=== PATIENT | female | born 1955 | race Caucasian/White ===

== ENCOUNTER 2018-07-15 10:16 | Emergency (ER) | payer OTHER, SELFPAY ==
[2018-07-15 10:45] VITALS: BP 152/72; PULSE 82; RESP 14; TEMP 36.8; O2SAT 98
[2018-07-15] MEDS: ONDANSETRON 4 MG ODT PO (11:00)
--- NOTE | 2018-07-15 11:02 | PC.NURSE ---
Pt visualized upon entry to ED, no acute distress. High acuity / distress in ED. Pt told I would be back out shortly, given blanket for warmth, w/c. Pt states she was sent from walk in clinic 'where they wouldn't even see me because I was in to much pain'. Very unhappy about wait in ED (@ 30 min. Brought to hallway placement as ED full. Got order for [place] and zofran for nausea. Given zofran. Pt then stated she wanted to leave and was in to much pain to wait. Told I had norco in hand for her. She refused it. I told her I was trying my best to accommodate and she verbalized she was not upset at me but upset at 'being bounced around'. Encouraged to return at any point in time. Signed VDC. Told me she would return as needed.
--- NOTE | 2018-07-15 19:20 | ED.LOWEXIN ---
HPI - Extremity Injury (Lower) General Chief Complaint: Extremity Injury, Lower Stated Complaint: banged r knee, swollen Source: RN notes reviewed Related Data Allergies Allergy/AdvReac Type Severity Reaction Status Date / Time nitroglycerin AdvReac Intermediate Headache Verified 07/15/18 10:53 PFSH Social History Smoking Status: Current every day smoker Social History Smoking Status: Current every day smoker Exam Initial Vital Signs Initial Vital Signs: Vital Signs Temperature 98.2 F 07/15/18 10:45 Pulse Rate 82 07/15/18 10:45 Respiratory Rate 14 07/15/18 10:45 Blood Pressure 152/72 H 07/15/18 10:45 Pulse Oximetry 98 07/15/18 10:45 Course Orders Ordered: Discontinued Medications Hydrocodone Bitart/Acetaminophen ([place] 5/325) 2 tab PO NOW ONE Stop: 07/15/18 11:14 Last Admin: 07/15/18 11:00 Dose: Not Given Ondansetron HCl (Zofran Odt) 4 mg PO NOW ONE Stop: 07/15/18 11:14 Last Admin: 07/15/18 11:00 Dose: 4 mg Discharge Plan Departure Patient Disposition: Left Without Being Seen Clinical Impression: Patient left without being seen Discharge Date/Time: 07/15/18 11:04
== END 2018-07-15 11:04 | disposition left against medical advice (07) ==
PROVIDERS: Emergency Provider Emergency Medicine
DX: Z53.21 Procedure and treatment not carried out due to patient leaving prior to being seen by health care provider (principal)
CPT/HCPCS: 99281

== ENCOUNTER 2019-04-19 11:03 | Emergency (ER) | payer OTHER, SELFPAY ==
--- NOTE | 2019-04-19 11:19 | ED_ITS ---
HPI - Nausea/Vomiting/Diarrhea <CARLOS Rowland - Last Filed: 04/19/19 12:38> General Chief complaint: Nausea/Vomiting/Diarrhea Stated complaint: NSR Time Seen by Provider: 04/19/19 11:15 Source: patient, family and EMS Mode of arrival: EMS Limitations: no limitations History of Present Illness HPI Narrative: This is a 63-year-old female, smoker, who presents to ED with [facility] and spouse with chief complain of fever, body aches, left ear pain, headache, nausea and vomitingx2 and diarrhea for 5 times a day. 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 Patient reports recent exposure to flu from her granddaughter who was sick for last 7 days she received flu vaccination one week ago. According to medics report, patient having similar to syncopal episodes for about 30 sec to 1 min with decreased response and arousable per deep sternum rubs on the way to ER with stable vital signs without changes in heart rate, O2 sat, or blood pressure. Patient's spouse notice patient had slurred speech yesterday morning but had resolved during afternoon. Patient denies having history of migraine headaches but she states she is having left-sided migraine headache from ear pain. ETOH smell on her breath and she states she had taken wine this morning to relax herself which is not routine for herself and reports she has been crying too much. Patient states she like to leave ER as soon as she arrived stating her daughter couple of years ago in this ER. Patient denies taking antibiotic medication recently. Patient tried to self-treated herself with Tylenol this morning but had vomited soon after. Related Data Previous Rx's Medication Instructions Recorded amoxicillin-pot clavulanate 1 tab PO BID #14 tab 04/19/19 [Augmentin] ondansetron 4 mg PO BID-TID PRN #7 tab 04/19/19 Allergies Allergy/AdvReac Type Severity Reaction Status Date / Time nitroglycerin AdvReac Intermediate Headache Verified 04/19/19 11:26 Review of Systems <CARLOS Rowland - Last Filed: 04/19/19 12:38> Review of Systems Narrative: General: Reports fever. Denies chills, fatigue, malaise, sweats. HEENT: Reports left ear pain and headache. Denies sinus pain, sore throat, difficulty swallowing, dizziness. Respiratory: Denies dyspnea, cough, wheezing, hemoptysis, sputum. Cardiovascular: Denies chest pain, palpitations, orthopnea, edema. Gastrointestinal: See HPI : Denies dysuria, frequency, incontinence, hematuria, urinary retention. Musculoskeletal: Reports body aches. Denies weakness, joint pain. Skin: Denies rash, skin lesions, or other. Neurologic: See HPI Psychiatric: Reports anxious. 12-point review of systems is negative except for those stated above. Patient History <CARLOS Rowland - Last Filed: 04/19/19 12:38> Medical History Psoriasis (Acute) Surgical History H/O shoulder surgery (Acute) Previous back surgery (Acute) Social History Smoking Status: Current every day smoker Smoking Status: Current every day smoker alcohol intake frequency: 0-2 drinks per day Substance Use Type: does not use Exam <CARLOS Rowland - Last Filed: 04/19/19 12:38> Narrative Exam Narrative: GEN: Alert, oriented x 3, thinn appearing and in no acute di stress. Head: Normal cephalic, atraumatic. No scalp or temporal tenderness, palpable mass or rash. EYES: Pupils are equal, round, and reactive to light and accommodation. Extraocular muscles are intact bilaterally. There is no subconjunctival hemorrhage, exudate and sclera non-icteric. ENT: Bilateral auditory canal clear. Left TM injected and dull. Right TM clear with positive light reflex. Hearing grossly intact. Nose without bleeding, purulent discharge or deviation, nasal congestion with speech. Facial sinuses nontender to palpate. Mucous membrane moist, no mucosal lesion. Throat without erythema, tonsillar hypertrophy or exudate. Uvula in midline, airway patent. Neck: Trachea in midline. No JVD, non-tender without lymphadenopathy. No masses or thyroid megaly. Supple, non-tender and no meningeal signs. CARDIAC: Normal regular rate and rhythm without murmurs, gallops, or rubs. No chest wall tenderness. No peripheral edema, cyanosis or pallor. Capillary refill is less than 2 seconds. RESPIRATORY: Lungs are clear to auscultate bilaterally. No cough, wheezes, rales, or rhonchi. No stridor, respiratory distress, increase work of breathing, or accessary muscle used. ABD: Abdomen soft, nontender and non-distended. No guarding or rebound tenderness to palpate. Bowel sounds are normal in all 4 quadrants. There is no palpable masses or organomegaly. EXT: Full painless ROM of all extremities with no loss of sensation, strength, effusion or edema. SKIN: Warm, dry, normal color for patient. No erythema, lesions or rash over visible areas. BACK: Nontender without deformity or crepitance. No flank tenderness. NEUROLOGICAL: Alert and oriented to place, time and person. Sensation and motor function intact bilaterally. No facial droops, dysphasia. PSYCHIATRIC: Good judgement and reason, without hallucinations, abnormal affect or abnormal behaviors during the examination. Patient is not suicidal. Initial Vital Signs Initial Vital Signs: Vital Signs Temperature 97.7 F 04/19/19 11:26 Pulse Rate 80 04/19/19 11:26 Respiratory Rate 04/19/19 11:26 Blood Pressure 138/92 H 04/19/19 11:26 Pulse Oximetry 99 04/19/19 11:26 Neuro Cranial Nerves: CN's II-XI intact bilaterally, EOM intact bilaterally, tongue midline and symmetric palate elevation Cognition: normal cognition Speech: speech normal Gait: normal gait Motor: muscle tone normal throughout Sensory Exam: no sensory deficits noted <Nini Shah DO - Last Filed: 04/19/19 13:26> Initial Vital Signs Initial Vital Signs: Vital Signs Temperature 97.7 F 04/19/19 11:26 Pulse Rate 80 04/19/19 11:26 Respiratory Rate 04/19/19 11:26 Blood Pressure 138/92 H 04/19/19 11:26 Pulse Oximetry 99 04/19/19 11:26 Scores <CARLOS Rowland - Last Filed: 04/19/19 12:38> GCS [place] coma scale eye opening: Spontaneous [place] coma scale verbal response: Orientated [place] coma scale motor response: [place] commands [place] coma scale total score: 15 NIH Stroke Scale Level of Conciousness: Alert, keenly responsive Ask month/age: Answers both questions correctly. Open/close eyes, close hand: Performs both tasks correctly Best gaze horizontal: Normal Visual marks: No visual loss Facial palsy: Normal symetrical movement Left arm drift: No drift for full 10 sec Right arm drift: No drift for full 10 sec Left leg drift: No drift for full 10 sec Right leg drift: No drift for full 10 sec Limb ataxia: Absent Sensory on face/arms/legs: Normal, no sensory loss Best language: No aphasia, normal Dysarthria: Normal Extinction or inattention: No abnormality Total NIH Stroke scale score: 0 Course <CARLOS Rowland - Last Filed: 04/19/19 12:38> Orders Ordered: ED Orders 04/19/19 11:15 Complete Blood Count AUTO DIFF Stat Comprehensive Metabolic Panel Stat Ethanol (ETOH) Stat Influenza A & B (PCR) Stat Lipase Stat 04/19/19 11:38 EKG-12 Lead Stat Discontinued Medications Acetaminophen (Tylenol) 650 mg PO NOW ONE Stop: 04/19/19 11:19 Last Admin: 04/19/19 12:22 Dose: Not Given Documented by: APOLONIA Sodium Chloride (Normal Saline 0.9%) 1,000 mls @ 1,000 mls/hr IV BOLUS ONE Stop: 04/19/19 12:14 Last Infusion: 04/19/19 12:18 Dose: 0 mls/hr Documented by: Admin: 04/19/19 11:36 Dose: 1,000 mls/hr Documented by: APOLONIA Ketorolac Tromethamine (Toradol) 15 mg IV NOW ONE Stop: 04/19/19 11:19 Last Admin: 04/19/19 11:33 Dose: 15 mg Documented by: APOLONIA Ondansetron HCl (Zofran) 4 mg IV NOW ONE Stop: 04/19/19 11:16 Last Admin: 04/19/19 11:33 Dose: 4 mg Documented by: APOLONIA Vital Signs Vital signs: Vital Signs - 8 hr 04/19/19 11:26 Temperature 97.7 F Pulse Rate 80 Respiratory Rate 21 Blood Pressure 138/92 H Pulse Oximetry 99 <Nini Shah DO - Last Filed: 04/19/19 13:26> Orders Ordered: ED Orders 04/19/19 11:15 Complete Blood Count AUTO DIFF Stat Comprehensive Metabolic Panel Stat Ethanol (ETOH) Stat Influenza A & B (PCR) Stat Lipase Stat 04/19/19 11:38 EKG-12 Lead Stat Discontinued Medications Acetaminophen (Tylenol) 650 mg PO NOW ONE Stop: 04/19/19 11:19 Last Admin: 04/19/19 12:22 Dose: Not Given Documented by: APOLONIA Sodium Chloride (Normal Saline 0.9%) 1,000 mls @ 1,000 mls/hr IV BOLUS ONE Stop: 04/19/19 12:14 Last Infusion: 04/19/19 12:18 Dose: 0 mls/hr Documented by: Admin: 04/19/19 11:36 Dose: 1,000 mls/hr Documented by: APOLONIA Ketorolac Tromethamine (Toradol) 15 mg IV NOW ONE Stop: 04/19/19 11:19 Last Admin: 04/19/19 11:33 Dose: 15 mg Documented by: APOLONIA Ondansetron HCl (Zofran) 4 mg IV NOW ONE Stop: 04/19/19 11:16 Last Admin: 04/19/19 11:33 Dose: 4 mg Documented by: APOLONIA Vital Signs Vital signs: Vital Signs - 8 hr 04/19/19 11:26 Temperature 97.7 F Pulse Rate 80 Respiratory Rate 21 Blood Pressure 138/92 H Pulse Oximetry 99 MDM - Nausea/Vomiting/Diarrhea <Hai ToledoCARLOS Rapp - Last Filed: 04/19/19 12:38> Differential Diagnosis Differential diagnosis: Likely gastroenteritis and other (ETOH intake, I nfluenza, TIA, OM) Medical Records Attestation: I reviewed the patient's medical records. Lab Data Attestation: I reviewed the patient's lab results. Result diagrams: 04/19/19 11:15 04/19/19 11:15 Labs: Lab Results 04/19/19 04/19/19 04/19/19 Range/Units 11:15 11:15 11:15 WBC 10.3 (4.5-11.0) X10^3/uL RBC 3.89 L (4.0-5.2) X10^6/uL Hgb 13.7 (12.0-16.0) g/dL Hct 39.7 (36-46) % MCV 102.2 H (80-100) fL MCH 35.2 H (26-34) PG MCHC 34.5 (30-36) % RDW 13.1 (11.6-14.8) % Plt Count 220 (150-400) X10^3/uL Neut % (Auto) 73.4 (50-75) % Lymph % (Auto) 19.5 L (25-40) % [place] % (Auto) 6.0 (3-14) % Eos % (Auto) 0.6 L (2-4) % Baso % (Auto) 0.5 (0-2) % Neut # (Auto) 7500 H (9691-1767) /uL Lymph # (Auto) 2000 (2146-3694) /uL [place] # (Auto) 600 (0-900) /uL Eos # (Auto) 100 (0-450) /uL Baso # (Auto) 100 (0-100) /uL Sodium 138 (137-145) mmol/L Potassium 3.6 (3.4-5.1) mmol/L Chloride 99 (98-107) mmol/L Carbon Dioxide 22 (22-32) mmol/L BUN 4 L (7-17) mg/dL Creatinine 0.60 (0.52-1.04) mg/dL Estimated GFR > 60.0 (>60) mL/min BUN/Creatinine Ratio 6.7 (6-22) Glucose 89 (80-110) mg/dL Calcium 9.9 (8.4-10.2) mg/dL Total Bilirubin 0.5 (0.2-1.3) mg/dL AST 23 (14-36) IU/L ALT 19 (<35) IU/L Alkaline Phosphatase 104 (38-126) U/L Total Protein 7.3 (6.3-8.2) g/dL Albumin 4.6 (3.5-5.0) g/dL Globulin 2.7 (1.7-4.1) g/dL Albumin/Globulin Ratio 1.7 (1.0-2.8) Lipase 51 (23-300) U/L Ethyl Alcohol ( - 10) mg/dL Influenza A (RT-PCR) Flu a negative (NEGATIVE) Influenza B (RT-PCR) Flu b negative (NEGATIVE) 04/19/19 Range/Units 11:15 WBC (4.5-11.0) X10^3/uL RBC (4.0-5.2) X10^6/uL Hgb (12.0-16.0) g/dL Hct (36-46) % MCV (80-100) fL MCH (26-34) PG MCHC (30-36) % RDW (11.6-14.8) % Plt Count (150-400) X10^3/uL Neut % (Auto) (50-75) % Lymph % (Auto) (25-40) % [place] % (Auto) (3-14) % Eos % (Auto) (2-4) % Baso % (Auto) (0-2) % Neut # (Auto) (5463-6280) /uL Lymph # (Auto) (1036-1287) /uL [place] # (Auto) (0-900) /uL Eos # (Auto) (0-450) /uL Baso # (Auto) (0-100) /uL Sodium (137-145) mmol/L Potassium (3.4-5.1) mmol/L Chloride (98-107) mmol/L Carbon Dioxide (22-32) mmol/L BUN (7-17) mg/dL Creatinine (0.52-1.04) mg/dL Estimated GFR (>60) mL/min BUN/Creatinine Ratio (6-22) Glucose (80-110) mg/dL Calcium (8.4-10.2) mg/dL Total Bilirubin (0.2-1.3) mg/dL AST (14-36) IU/L ALT (<35) IU/L Alkaline Phosphatase (38-126) U/L Total Protein (6.3-8.2) g/dL Albumin (3.5-5.0) g/dL Globulin (1.7-4.1) g/dL Albumin/Globulin Ratio (1.0-2.8) Lipase (23-300) U/L Ethyl Alcohol 157 H ( - 10) mg/dL Influenza A (RT-PCR) (NEGATIVE) Influenza B (RT-PCR) (NEGATIVE) ECG Data Attestation: I personally reviewed and interpreted this ECG as follows: Prior ECG tracings: not available for review Interpretation: SR rate at 75. Normal [place]. No ST elevation or depression MDM Narrative Medical decision making narrative: This is a 63-year-old female who presents to ED with spouse via would be EMS with chief complaint left ear pain, fever, productive cough, nausea/vomiting/diarrhea, headache and recent exposure to a granddaughter had flu. Spouse concerned and called EMS due to patient had slurred speech yesterday morning which resolved during afternoon. EMS reported patient had decreased responsiveness during right to ED and had to be stimulated by sternal rub with stable vital signs. Patient does report had a glass of wine this morning to relax herself. Patient is very anxious to leave ED as soon as she arrived to ED stating I feel fine, I don't want to be here since her daughter 2 years ago in emergency room. Patient states drinks a couple of alcohol drinks a day. Patient has slurred speech likely related to alcohol intake and today's ETOH level is 157. When patient informed of this patient, patient appears to be very surprised. NIHSS score 0 and patient is alert and oriented with negative FAST exam. Patient was medicated with IV Zofran and normal saline 1 liter. Flu swab was negative. Lab tests were unremarkable. Patient was afebrile with stable vital signs. Patient refused to provide urine sample. Physical exam is consistent with left otitis media and Rx provided for Augmentin b.i.d. dose for 7 day course. Zofran has been Rx for home use to hydrate herself with a frequent small sips of clear liquids. Patient refused to stay longer for additional evaluation and treatment. Return precautions were discussed with the patient and patient and spouse verbalized understanding and agrees with treatment plan. <Nini Shah, DO - Last Filed: 04/19/19 13:26> Lab Data Labs: Lab Results 04/19/19 04/19/19 04/19/19 Range/Units 11:15 11:15 11:15 WBC 10.3 (4.5-11.0) X10^3/uL RBC 3.89 L (4.0-5.2) X10^6/uL Hgb 13.7 (12.0-16.0) g/dL Hct 39.7 (36-46) % MCV 102.2 H (80-100) fL MCH 35.2 H (26-34) PG MCHC 34.5 (30-36) % RDW 13.1 (11.6-14.8) % Plt Count 220 (150-400) X10^3/uL Neut % (Auto) 73.4 (50-75) % Lymph % (Auto) 19.5 L (25-40) % [place] % (Auto) 6.0 (3-14) % Eos % (Auto) 0.6 L (2-4) % Baso % (Auto) 0.5 (0-2) % Neut # (Auto) 7500 H (4127-4574) /uL Lymph # (Auto) 2000 (1734-7486) /uL [place] # (Auto) 600 (0-900) /uL Eos # (Auto) 100 (0-450) /uL Baso # (Auto) 100 (0-100) /uL Sodium 138 (137-145) mmol/L Potassium 3.6 (3.4-5.1) mmol/L Chloride 99 (98-107) mmol/L Carbon Dioxide 22 (22-32) mmol/L BUN 4 L (7-17) mg/dL Creatinine 0.60 (0.52-1.04) mg/dL Estimated GFR > 60.0 (>60) mL/min BUN/Creatinine Ratio 6.7 (6-22) Glucose 89 (80-110) mg/dL Calcium 9.9 (8.4-10.2) mg/dL Total Bilirubin 0.5 (0.2-1.3) mg/dL AST 23 (14-36) IU/L ALT 19 (<35) IU/L Alkaline Phosphatase 104 (38-126) U/L Total Protein 7.3 (6.3-8.2) g/dL Albumin 4.6 (3.5-5.0) g/dL Globulin 2.7 (1.7-4.1) g/dL Albumin/Globulin Ratio 1.7 (1.0-2.8) Lipase 51 (23-300) U/L Ethyl Alcohol ( - 10) mg/dL Influenza A (RT-PCR) Flu a negative (NEGATIVE) Influenza B (RT-PCR) Flu b negative (NEGATIVE) 04/19/19 Range/Units 11:15 WBC (4.5-11.0) X10^3/uL RBC (4.0-5.2) X10^6/uL Hgb (12.0-16.0) g/dL Hct (36-46) % MCV (80-100) fL MCH (26-34) PG MCHC (30-36) % RDW (11.6-14.8) % Plt Count (150-400) X10^3/uL Neut % (Auto) (50-75) % Lymph % (Auto) (25-40) % [place] % (Auto) (3-14) % Eos % (Auto) (2-4) % Baso % (Auto) (0-2) % Neut # (Auto) (7604-3610) /uL Lymph # (Auto) (3017-9597) /uL [place] # (Auto) (0-900) /uL Eos # (Auto) (0-450) /uL Baso # (Auto) (0-100) /uL Sodium (137-145) mmol/L Potassium (3.4-5.1) mmol/L Chloride (98-107) mmol/L Carbon Dioxide (22-32) mmol/L BUN (7-17) mg/dL Creatinine (0.52-1.04) mg/dL Estimated GFR (>60) mL/min BUN/Creatinine Ratio (6-22) Glucose (80-110) mg/dL Calcium (8.4-10.2) mg/dL Total Bilirubin (0.2-1.3) mg/dL AST (14-36) IU/L ALT (<35) IU/L Alkaline Phosphatase (38-126) U/L Total Protein (6.3-8.2) g/dL Albumin (3.5-5.0) g/dL Globulin (1.7-4.1) g/dL Albumin/Globulin Ratio (1.0-2.8) Lipase (23-300) U/L Ethyl Alcohol 157 H ( - 10) mg/dL Influenza A (RT-PCR) (NEGATIVE) Influenza B (RT-PCR) (NEGATIVE) Discharge Plan Departure Patient Disposition: Home Clinical Impression: Otitis media Qualifiers: Otitis media type: unspecified Chronicity: acute Qualified Code(s): H66.90 - Otitis media, unspecified, unspecified ear Nausea & vomiting Qualifiers: Vomiting type: unspecified Vomiting Intractability: non-intractable Qualified Code(s): R11.2 - Nausea with vomiting, unspecified Discharge Date/Time: 04/19/19 12:24 Instructions: DI for Vomiting -- Adult, DI for Middle Ear Infection-Adult Activity Restrictions/Additional Instructions: You have been diagnosed with [middle your infection on left ear, nausea and vomiting, viral illness. EKG looks normal. Flu swab test was negative and blood tests were unremarkable]. What to do: *Take your medications as directed. Please start Augmentin for otitis media twice a day for next 7 days. You can use Zofran as needed for nausea and vomiting. Please hydrate herself with small sips clear liquids after the Zofran. *Follow up with your primary care provider in 2-3 days, call for an appointment. Let them know you were seen in the ED and that we asked you to be seen in follow up. *Return to ED if you have any new, worsening, or concerning symptoms, such as [fever, chest pain, breathing difficulty, unable to tolerate fluids, fainting episodes, weakness to limbs, slurred speech, vision change, facial droops, balance problem, blood in your vomit or stools or any acute concerns]. Prescriptions: New amoxicillin-pot clavulanate [Augmentin] 875-125 mg tablet 1 tab PO BID Qty: 14 RF: 0 ondansetron 4 mg tablet,disintegrating 4 mg PO BID-TID PRN (Reason: nausea and vomiting) Qty: 7 RF: 0
[2019-04-19 11:25] LABS: Add Manual Diff / Slide Review NO; Basophils Absolute Auto 100 /uL (0-100); Basophils Percent Auto 0.5 % (0-2); Eosinophils Absolute Auto 100 /uL (0-450); Eosinophils Percent Auto 0.6 % (2-4); Hematocrit 39.7 % (36-46); Hemoglobin 13.7 g/dL (12.0-16.0); Lymphocytes Absolute Auto 2000 /uL (1100-4500); Lymphocytes Percent Auto 19.5 % (25-40); Mean Corpuscular HGB Conc 34.5 % (30-36); Mean Corpuscular Hemoglobin 35.2 PG (26-34); Mean Corpuscular Volume 102.2 fL (80-100); Monocytes Absolute Auto 600 /uL (0-900); Neutrophils Absolute Auto 7500 /uL (1500-7000); Neutrophils Percent Auto 73.4 % (50-75); Platelet Count 220 X10^3/uL (150-400); Red Blood Cell Count 3.89 X10^6/uL (4.0-5.2); Red Cell Distribution Width 13.1 % (11.6-14.8); White Blood Cell Count 10.3 X10^3/uL (4.5-11.0)
[2019-04-19 11:26] VITALS: BP 138/92; PULSE 80; RESP 21; TEMP 36.5; O2SAT 99; BMI 20.1
[2019-04-19] MEDS: ONDANSETRON 4 MG/2 ML INJ IV (11:33)
[2019-04-19] MEDS: KETOROLAC 60 MG/2 ML VIAL 15 MG IV (11:33)
[2019-04-19 11:34] LABS: Alanine Aminotransferase 19 IU/L (<35); Albumin 4.6 g/dL (3.5-5.0); Albumin Globulin Ratio 1.7 (1.0-2.8); Alkaline Phosphatase 104 U/L (38-126); Aspartate Aminotransferase 23 IU/L (14-36); BUN Creatinine Ratio 6.7 (6-22); Bilirubin Total 0.5 mg/dL (0.2-1.3); Blood Urea Nitrogen 4 mg/dL (7-17); Calcium 9.9 mg/dL (8.4-10.2); Carbon Dioxide 22 mmol/L (22-32); Chloride 99 mmol/L (98-107); Estimated Glomerular Filt Rate > 60.0 mL/min (>60); Globulin 2.7 g/dL (1.7-4.1); Glucose 89 mg/dL (80-110); HEMOLYSIS < 15 (0-50); Lipase 51 U/L (23-300); Potassium 3.6 mmol/L (3.4-5.1); Sodium 138 mmol/L (137-145); Total Protein 7.3 g/dL (6.3-8.2)
[2019-04-19] MEDS: SODIUM CHLORIDE 0.9% 1,000 ML 1000 ML IV (11:36)
[2019-04-19 11:38] LABS: Ethanol (ETOH) 157 mg/dL
--- NOTE | 2019-04-19 11:46 | PC.NURSE ---
Pt was given toradol IV, pt states I have better F meds at home. Pt has removed all monitoring devices and has refused to get a urine sample. Pt got up without assist, asked to stay until we had a wc for transport to restroom. States, I can take better care of myself at home.
--- NOTE | 2019-04-19 11:47 | PC.NURSE ---
patient came out of bathroom, walked by the wheelchair taking off her cardiac leads, states i don't need these, theres nothing wrong with my heart
[2019-04-19 12:03] LABS: Influenza A - CEPHEID Flu A NEGATIVE (NEGATIVE); Influenza B - CEPHEID Flu B NEGATIVE (NEGATIVE)
--- NOTE | 2019-04-19 12:05 | PC.NURSE ---
Pt taking off IV tape, leaving IV in. States, It so easy to just take this out I asked pt if we could leave it covered while she finishes her fluids. I applied tape.
--- NOTE | 2019-04-19 12:16 | PC.NURSE ---
Pt pulled IV out
== END 2019-04-19 12:24 | disposition home or self-care (01) ==
PROVIDERS: Emergency Provider Nurse Practitioner Family
DX: H66.92 Otitis media, unspecified, left ear (principal); R11.2 Nausea with vomiting, unspecified; R19.7 Diarrhea, unspecified; F10.129 Alcohol abuse with intoxication, unspecified; Y90.6 Blood alcohol level of 120-199 mg/100 ml; F17.200 Nicotine dependence, unspecified, uncomplicated
CPT/HCPCS: 36415; 80053; 80320; 83690; 85025; 87502; 93005; 96361; 96374; 96375; 99283; 99284; J1885; J2405

== ENCOUNTER 2020-02-21 07:05 | Emergency (ER) | payer OTHER, SELFPAY ==
[2020-02-21] VITALS (14 sets, daily range): BP systolic 153–192; BP diastolic 70–92; PULSE 52–63; RESP 18–45; TEMP 36.7; O2SAT 97–100; BMI 20.5
--- NOTE | 2020-02-21 07:43 | ED.ABDPAIN ---
HPI - Abdominal Pain General Chief Complaint: Abdominal Pain Stated Complaint: liver /galblader/ vomiting Time Seen by Provider: 02/21/20 07:12 Source: patient Mode of arrival: Ambulatory History of Present Illness HPI narrative: Pt c/o ruq pain with n/v. Patient states onset 1 week ago with right upper quadrant discomfort. Had itchy skin for a while and resolved. Never developed yellow eyes or yellow skin. Patient has significant family history of liver disease/cancer. No surgeries on her abdomen the past. No urinary complaints. Worse with eating. Sometimes with movement. No back pain chest pain. No cough cold congestion fever chills. MD complaint: abdominal pain Related Data Previous Rx's Medication Instructions Recorded amoxicillin-pot clavulanate 1 tab PO BID #14 tab 04/19/19 [Augmentin] ondansetron 4 mg PO BID-TID PRN #7 tab 04/19/19 ondansetron 4 mg PO Q8H PRN #10 tab 02/21/20 Allergies Allergy/AdvReac Type Severity Reaction Status Date / Time nitroglycerin AdvReac Intermediate Headache Verified 04/19/19 11:26 Patient History Medical History (Updated 02/21/20 @ 11:30 by Abby Mcdermott RN) Psoriasis (Acute) Surgical History H/O shoulder surgery (Acute) Previous back surgery (Acute) Social History Smoking Status: Current every day smoker Smoking Status: Current every day smoker alcohol intake frequency: a few times a week Substance Use Type: does not use Exam Initial Vital Signs Initial Vital Signs: Vital Signs Temperature 98.1 F 02/21/20 07:18 Pulse Rate 55 L 02/21/20 07:18 Respiratory Rate 18 02/21/20 07:18 Blood Pressure 157/82 H 02/21/20 07:18 Pulse Oximetry 100 02/21/20 07:18 Course Course Course Narrative: Reviewed results with patient. She does not want any Bentyl. She agrees with follow-up. She has appointment with a new doctor Keya Pahaade coker Giovanni March 12. She does have a family physician that she will call in [place] to get referral for HIDA scan as well as GI Orders Ordered: Discontinued Medications Sodium Chloride (Normal Saline 0.9%) 500 mls @ 1,000 mls/hr IV BOLUS ONE Stop: 02/21/20 08:51 Last Infusion: 02/21/20 09:47 Dose: 0 mls/hr Documented by: Admin: 02/21/20 08:38 Dose: 1,000 mls/hr Documented by: LORI Reevaluation(s) Reevaluation #1: No new complaints at this time. Patient is not on any medications. Reviewed results with patient needing to continue workup for liver disease and possible biliary dyskinesia. Will need GI referral. Spoke with patient and that she will need continued workup. Given family history of liver disease Time: 11:28 Vital Signs Vital signs: Vital Signs - 8 hr 02/21/20 07:18 02/21/20 07:45 02/21/20 08:00 Temperature 98.1 F Pulse Rate 55 L 54 L Respiratory Rate 18 37 H Blood Pressure 157/82 H 165/83 H Pulse Oximetry 100 100 100 02/21/20 08:01 02/21/20 08:30 02/21/20 08:31 Temperature Pulse Rate 55 L 57 L 55 L Respiratory Rate 34 H 45 H 26 H Blood Pressure 166/81 H 184/79 H Pulse Oximetry 99 100 100 02/21/20 09:00 02/21/20 09:19 02/21/20 09:30 Temperature Pulse Rate 55 L 57 L 55 L Respiratory Rate 40 H 27 H 22 Blood Pressure 160/92 H 167/79 H 153/70 H Pulse Oximetry 100 100 99 02/21/20 10:00 02/21/20 10:01 02/21/20 10:30 Temperature Pulse Rate 53 L 55 L 54 L Respiratory Rate 20 18 22 Blood Pressure 165/77 H 175/84 H Pulse Oximetry 97 99 100 02/21/20 11:00 Temperature Pulse Rate 52 L Respiratory Rate 24 Blood Pressure Pulse Oximetry 99 MDM - Abdominal Pain Lab Data Attestation: I reviewed the patient's lab results. Result diagrams: 02/21/20 07:45 02/21/20 07:45 Labs: Lab Results 02/21/20 02/21/20 02/21/20 Range/Units 07:45 07:45 07:45 WBC 8.7 (4.5-11.0) X10^3/uL RBC 4.32 (4.0-5.2) X10^6/uL Hgb 15.0 (12.0-16.0) g/dL Hct 44.2 (36-46) % MCV 102.3 H (80-100) fL MCH 34.8 H (26-34) PG MCHC 34.0 (30-36) % RDW 12.8 (11.6-14.8) % Plt Count 254 (150-400) X10^3/uL Neut % (Auto) 76.2 H (50-75) % Lymph % (Auto) 17.8 L (25-40) % [place] % (Auto) 5.4 (3-14) % Eos % (Auto) 0.1 L (2-4) % Baso % (Auto) 0.5 (0-2) % Neut # (Auto) 6600 (4447-9064) /uL Lymph # (Auto) 1500 (6468-0620) /uL [place] # (Auto) 500 (0-900) /uL Eos # (Auto) 0 (0-450) /uL Baso # (Auto) 0 (0-100) /uL PT 11.4 (10.1-12.7) SECONDS INR 1.0 (0.9-1.3) APTT 33 (26.4-36.2) SECONDS Sodium 129 L (137-145) mmol/L Potassium 3.6 (3.4-5.1) mmol/L Chloride 97 L (98-107) mmol/L Carbon Dioxide 26 (22-32) mmol/L BUN 10 (7-17) mg/dL Creatinine 0.68 (0.52-1.04) mg/dL Estimated GFR > 60.0 (>60) mL/min BUN/Creatinine Ratio 14.7 (6-22) Glucose 113 H (80-110) mg/dL Calcium 9.4 (8.4-10.2) mg/dL Total Bilirubin 0.9 (0.2-1.3) mg/dL AST 21 (14-36) IU/L ALT 14 (<35) IU/L Alkaline Phosphatase 100 (38-126) U/L Total Creatine Kinase (30-135) U/L CK-MB (CK-2) CK-MB (CK-2) Rel Index Troponin I (0.01-0.034) ng/mL Total Protein 7.2 (6.3-8.2) g/dL Albumin 4.4 (3.5-5.0) g/dL Globulin 2.8 (1.7-4.1) g/dL Albumin/Globulin Ratio 1.6 (1.0-2.8) Lipase 85 (23-300) U/L 02/21/20 Range/Units 07:45 WBC (4.5-11.0) X10^3/uL RBC (4.0-5.2) X10^6/uL Hgb (12.0-16.0) g/dL Hct (36-46) % MCV (80-100) fL MCH (26-34) PG MCHC (30-36) % RDW (11.6-14.8) % Plt Count (150-400) X10^3/uL Neut % (Auto) (50-75) % Lymph % (Auto) (25-40) % [place] % (Auto) (3-14) % Eos % (Auto) (2-4) % Baso % (Auto) (0-2) % Neut # (Auto) (0643-0521) /uL Lymph # (Auto) (6483-0578) /uL [place] # (Auto) (0-900) /uL Eos # (Auto) (0-450) /uL Baso # (Auto) (0-100) /uL PT (10.1-12.7) SECONDS INR (0.9-1.3) APTT (26.4-36.2) SECONDS Sodium (137-145) mmol/L Potassium (3.4-5.1) mmol/L Chloride (98-107) mmol/L Carbon Dioxide (22-32) mmol/L BUN (7-17) mg/dL Creatinine (0.52-1.04) mg/dL Estimated GFR (>60) mL/min BUN/Creatinine Ratio (6-22) Glucose (80-110) mg/dL Calcium (8.4-10.2) mg/dL Total Bilirubin (0.2-1.3) mg/dL AST (14-36) IU/L ALT (<35) IU/L Alkaline Phosphatase (38-126) U/L Total Creatine Kinase 56 (30-135) U/L CK-MB (CK-2) TNP CK-MB (CK-2) Rel Index TNP Troponin I < 0.012 (0.01-0.034) ng/mL Total Protein (6.3-8.2) g/dL Albumin (3.5-5.0) g/dL Globulin (1.7-4.1) g/dL Albumin/Globulin Ratio (1.0-2.8) Lipase (23-300) U/L Imaging Data Abdominal ultrasound: Radiologist's Impression: [address] [address] Ultrasound Report Signed Patient: Yesica Franco GMR#: [id number] : 8Acct:[id number] Age/Sex: 64 / FDate of Service: 02/21/20 Loc: ED Accession Number: [id number] Procedure: US abdomen limited Ordering Provider: Austyn Elizalde MD PROCEDURE: US ABDOMEN LIMITED INDICATIONS: UPPER ABDOMINAL PAIN TECHNIQUE: Real-time scanning was performed of the abdominal and retroperitoneal organs, with image documentation. COMPARISON: [facility], CT, CT ABDOMEN PELVIS W CON, 02/21/2020, 9:08. FINDINGS: Liver: Liver is normal in size and diffusely increased in echogenicity. Gallbladder: The gallbladder is mildly contracted without gallstones or gallbladder wall thickening. There is no pericholecystic fluid. Biliary ducts: Intrahepatic bile ducts are non-dilated. Extrahepatic bile duct caliber measures 3 mm. Normal is 6-7 mm or less in diameter, or 10 mm or less post-cholecystectomy. Pancreas: Visualized portions of the pancreas are sonographically normal. Iliacs: Proximal common iliac arteries are normal in caliber at less than 2.5 cm. IVC: Intrahepatic inferior vena cava is patent. Miscellaneous: No free right upper quadrant fluid. IMPRESSION: 1. Mildly contracted gallbladder without signs of acute cholecystitis. 2. Increased hepatic echogenicity is seen, most commonly secondary to diffuse hepatic steatosis but other sources of hepatocellular disease cannot be excluded. Recommend clinical correlation. Dictated by: Jose Carlos Davidson M.D. on 02/21/2020 at 10:38 Approved by: Jose Carlos Davidson M.D. on 02/21/2020 at 10:41 CT scan - abdomen/pelvis: Radiologist's Impression: [address] [address] [address] Scan Report Signed Patient: Yesica Franco GMR#: [id number] : 8Acct:[id number] Age/Sex: 64 / FDate of Service: 02/21/20 Loc: ED Accession Number: [id number] Procedure: CT abdomen pelvis w con Ordering Provider: Austyn Elizalde MD PROCEDURE: CT ABDOMEN PELVIS W CON INDICATIONS: IV contrast only/upper abdominal pain TECHNIQUE: After the administration of intravenous contrast, 5 mm thick sections acquired from the diaphragm to the symphysis. 5 mm coronal and sagittal reformats were acquired. For radiation dose reduction, the following was used: automated exposure control, adjustment of mA and/or kV according to patient size. COMPARISON: None. FINDINGS: Image quality: Study mildly degraded by moderate beam hardening and streak artifact from spinal fusion hardware at L5-S1. ABDOMEN: Lung bases: Minimal bibasilar atelectasis. Heart size is normal. Partially imaged oval hyperdensity in the inferior margin of the left upper chest likely representing breast tissue or breast implant. Recommend correlation with clinical history. Solid organs: Liver is normal in size and enhancement. Hepatic steatosis. Gallbladder is decompressed; however, there appears to be relative increased wall enhancement. No evidence for wall thickening or pericholecystic inflammatory changes. . Biliary system is non dilated. Pancreas enhances normally. Spleen is normal in size and enhancement. No adrenal nodules. Kidneys demonstrate normal size and enhancement, without hydronephrosis. Peritoneum and bowel: Moderate scattered colonic diverticulosis without evidence for acute inflammatory changes. Bowel loops demonstrate normal wall thickness and caliber. No free fluid or air. Nodes and vessels: No retroperitoneal or mesenteric adenopathy by size criteria. Aorta and inferior vena cava are normal in size. Scattered atherosclerotic calcifications of the abdominal aorta and iliac vessels without aneurysmal dilatation. Miscellaneous: No ventral hernias. PELVIS: Genitourinary: Bladder wall thickness is normal. Miscellaneous: No inguinal hernias or adenopathy. Bones: No suspicious bony lesions. No acute vertebral body compression fractures. Multilevel spondylitic changes of the imaged spine status post fusion at L5-S1 and discectomies at L4-5 and L5-S1. IMPRESSION: 1. Decompressed gallbladder with suggestion of increased gallbladder wall enhancement. Otherwise, no CT evidence for gallbladder wall thickening, pericholecystic fluid, or pericholecystic inflammatory changes. Consider right upper quadrant ultrasound for further evaluation. 2. Diffuse hepatic steatosis. 3. Colonic diverticulosis without acute diverticulitis. 4. Other chronic findings as above. Dictated by: Rocco Gonzalez M.D. on 02/21/2020 at 8:30 Approved by: Rocco Gonzalez M.D. on 02/21/2020 at 8:40 ECG Data Attestation: I personally reviewed and interpreted this ECG as follows: Interpretation: Sinus bradycardia, rate 52, no ST elevation or depression MDM Narrative Medical decision making narrative: Appropriate for discharge home and follow-up with family physician for referral to HIDA scan as well as Gastroenterology. Laboratory studies normal at this time. No acute findings on imaging. Patient and understand with family history of liver cancer disease needs continued workup. Outpatient basis blood pressure noted. Patient has not taken her blood pressure medication. Slightly anxious as well. No chest pain headache. No neuro complaints Discharge Plan Departure Patient Disposition: Home Clinical Impression: Hypertension Abdominal pain Qualifiers: Abdominal location: right upper quadrant Qualified Code(s): R10.11 - Right upper quadrant pain Discharge Date/Time: 02/21/20 11:30 Instructions: DI for Abdominal Pain-Adult Activity Restrictions/Additional Instructions: Do not drink alcohol. See your new family physician with [facility] in [place] March 12 as scheduled. 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 And is scheduled for HIDA scan of the gallbladder. Do not drink alcohol. Return if worse or if any questions or concerns. Prescription for Zofran has been sent to [facility] in [place] Prescriptions: New ondansetron 4 mg tablet,disintegrating 4 mg PO Q8H PRN (Reason: nausea and vomiting) Qty: 10 RF: 0 No Action amoxicillin-pot clavulanate [Augmentin] 875-125 mg tablet 1 tab PO BID Qty: 14 RF: 0 ondansetron 4 mg tablet,disintegrating 4 mg PO BID-TID PRN (Reason: nausea and vomiting) Qty: 7 RF: 0
[2020-02-21 07:55] LABS: Add Manual Diff / Slide Review NO; Basophils Absolute Auto 0 /uL (0-100); Basophils Percent Auto 0.5 % (0-2); Eosinophils Absolute Auto 0 /uL (0-450); Eosinophils Percent Auto 0.1 % (2-4); Hematocrit 44.2 % (36-46); Lymphocytes Absolute Auto 1500 /uL (1100-4500); Lymphocytes Percent Auto 17.8 % (25-40); Mean Corpuscular Hemoglobin 34.8 PG (26-34); Mean Corpuscular Volume 102.3 fL (80-100); Monocytes Absolute Auto 500 /uL (0-900); Monocytes Percent Auto 5.4 % (3-14); Neutrophils Absolute Auto 6600 /uL (1500-7000); Neutrophils Percent Auto 76.2 % (50-75); Platelet Count 254 X10^3/uL (150-400); Red Blood Cell Count 4.32 X10^6/uL (4.0-5.2); Red Cell Distribution Width 12.8 % (11.6-14.8); White Blood Cell Count 8.7 X10^3/uL (4.5-11.0)
[2020-02-21 08:00] LABS: Prothrombin Time 11.4 SECONDS (10.1-12.7)
[2020-02-21 08:03] LABS: PTT Partial Thromboplastin Tim 33 SECONDS (26.4-36.2)
[2020-02-21 08:05] LABS: Alanine Aminotransferase 14 IU/L (<35); Albumin 4.4 g/dL (3.5-5.0); Albumin Globulin Ratio 1.6 (1.0-2.8); Alkaline Phosphatase 100 U/L (38-126); Aspartate Aminotransferase 21 IU/L (14-36); BUN Creatinine Ratio 14.7 (6-22); Bilirubin Total 0.9 mg/dL (0.2-1.3); Blood Urea Nitrogen 10 mg/dL (7-17); Calcium 9.4 mg/dL (8.4-10.2); Carbon Dioxide 26 mmol/L (22-32); Chloride 97 mmol/L (98-107); Estimated Glomerular Filt Rate > 60.0 mL/min (>60); Globulin 2.8 g/dL (1.7-4.1); Glucose 113 mg/dL (80-110); HEMOLYSIS < 15 (0-50); Lipase 85 U/L (23-300); Potassium 3.6 mmol/L (3.4-5.1); Sodium 129 mmol/L (137-145); Total Protein 7.2 g/dL (6.3-8.2)
[2020-02-21 08:06] LABS: Creatine Kinase 56 U/L (30-135)
[2020-02-21 08:17] LABS: Troponin I < 0.012 ng/mL (0.01-0.034)
--- NOTE | 2020-02-21 08:22 | DI.CT.S_ITS ---
PROCEDURE: CT ABDOMEN PELVIS W CON INDICATIONS: IV contrast only/upper abdominal pain TECHNIQUE: After the administration of intravenous contrast, 5 mm thick sections acquired from the diaphragm to the symphysis. 5 mm coronal and sagittal reformats were acquired. For radiation dose reduction, the following was used: automated exposure control, adjustment of mA and/or kV according to patient size. COMPARISON: None. FINDINGS: Image quality: Study mildly degraded by moderate beam hardening and streak artifact from spinal fusion hardware at L5-S1. ABDOMEN: Lung bases: Minimal bibasilar atelectasis. Heart size is normal. Partially imaged oval hyperdensity in the inferior margin of the left upper chest likely representing breast tissue or breast implant. Recommend correlation with clinical history. Solid organs: Liver is normal in size and enhancement. Hepatic steatosis. Gallbladder is decompressed; however, there appears to be relative increased wall enhancement. No evidence for wall thickening or pericholecystic inflammatory changes. . Biliary system is non dilated. Pancreas enhances normally. Spleen is normal in size and enhancement. No adrenal nodules. Kidneys demonstrate normal size and enhancement, without hydronephrosis. Peritoneum and bowel: Moderate scattered colonic diverticulosis without evidence for acute inflammatory changes. Bowel loops demonstrate normal wall thickness and caliber. No free fluid or air. Nodes and vessels: No retroperitoneal or mesenteric adenopathy by size criteria. Aorta and inferior vena cava are normal in size. Scattered atherosclerotic calcifications of the abdominal aorta and iliac vessels without aneurysmal dilatation. Miscellaneous: No ventral hernias. PELVIS: Genitourinary: Bladder wall thickness is normal. Miscellaneous: No inguinal hernias or adenopathy. Bones: No suspicious bony lesions. No acute vertebral body compression fractures. Multilevel spondylitic changes of the imaged spine status post fusion at L5-S1 and discectomies at L4-5 and L5-S1. IMPRESSION: 1. Decompressed gallbladder with suggestion of increased gallbladder wall enhancement. Otherwise, no CT evidence for gallbladder wall thickening, pericholecystic fluid, or pericholecystic inflammatory changes. Consider right upper quadrant ultrasound for further evaluation. 2. Diffuse hepatic steatosis. 3. Colonic diverticulosis without acute diverticulitis. 4. Other chronic findings as above. Dictated by: Rocco Gonzalez M.D. on 02/21/2020 at 8:30 Approved by: Rocco Gonzalez M.D. on 02/21/2020 at 8:40
[2020-02-21] MEDS: SODIUM CHLORIDE 0.9% 500 ML 1000 ML IV (08:38)
--- NOTE | 2020-02-21 09:55 | DI.US.S_ITS ---
PROCEDURE: US ABDOMEN LIMITED INDICATIONS: UPPER ABDOMINAL PAIN TECHNIQUE: Real-time scanning was performed of the abdominal and retroperitoneal organs, with image documentation. COMPARISON: [facility], CT, CT ABDOMEN PELVIS W CON, 02/21/2020, 9:08. FINDINGS: Liver: Liver is normal in size and diffusely increased in echogenicity. Gallbladder: The gallbladder is mildly contracted without gallstones or gallbladder wall thickening. There is no pericholecystic fluid. Biliary ducts: Intrahepatic bile ducts are non-dilated. Extrahepatic bile duct caliber measures 3 mm. Normal is 6-7 mm or less in diameter, or 10 mm or less post-cholecystectomy. Pancreas: Visualized portions of the pancreas are sonographically normal. Iliacs: Proximal common iliac arteries are normal in caliber at less than 2.5 cm. IVC: Intrahepatic inferior vena cava is patent. Miscellaneous: No free right upper quadrant fluid. IMPRESSION: 1. Mildly contracted gallbladder without signs of acute cholecystitis. 2. Increased hepatic echogenicity is seen, most commonly secondary to diffuse hepatic steatosis but other sources of hepatocellular disease cannot be excluded. Recommend clinical correlation. Dictated by: Jose Carlos Davidson M.D. on 02/21/2020 at 10:38 Approved by: Jose Carlos Davidson M.D. on 02/21/2020 at 10:41
== END 2020-02-21 11:30 | disposition home or self-care (01) ==
PROVIDERS: Emergency Provider Emergency Medicine
DX: R10.11 Right upper quadrant pain (principal); I10 Essential (primary) hypertension; R00.1 Bradycardia, unspecified
CPT/HCPCS: 36415; 74177; 76705; 80053; 82550; 83690; 84484; 85025; 85610; 85730; 93005; 96360; 99284

== ENCOUNTER → 2022-10-15 10:06 | Outpatient (CLI) | payer OTHER, SELFPAY ==
[2022-10-15 10:47] LABS: Influenza A - CEPHEID Flu A NEGATIVE (NEGATIVE); Influenza B - CEPHEID Flu B NEGATIVE (NEGATIVE); Respiratory Syncytial Virus Negative (Negative)
[2022-10-15 10:49] LABS: COVID-19 CEPHEID 4-PLEX PCR Negative (Negative)
== END ==
PROVIDERS: Visit Provider Physician Assistant
DX: R05.1 Acute cough (principal); Z20.822 Contact with and (suspected) exposure to COVID-19
CPT/HCPCS: 0241U

== ENCOUNTER 2024-06-30 08:18 | Emergency (ER) | payer OTHER, SELFPAY ==
[2024-06-30] VITALS (17 sets, daily range): BP systolic 176–224; BP diastolic 77–106; PULSE 59–68; RESP 12–36; TEMP 36.4; O2SAT 92–99; BMI 20.6
--- NOTE | 2024-06-30 08:22 | DI.RAD.S_ITS ---
PROCEDURE: XR CHEST 1V INDICATIONS: chest pain TECHNIQUE: One view of the chest was acquired. COMPARISON: None. FINDINGS: Surgical changes and devices: None. Lungs and pleura: Lungs are clear. No pleural effusions or pneumothorax. Mediastinum: Mediastinal contours appear normal. Heart size is normal. Bones and chest wall: No suspicious bony lesions. Overlying soft tissues appear unremarkable. IMPRESSION: No acute cardiopulmonary abnormality is seen. Dictated by: Reg Scott M.D. on 06/30/2024 at 9:05 Approved by: Reg Scott M.D. on 06/30/2024 at 9:06
--- NOTE | 2024-06-30 08:28 | EKG_ITS ---
[address] [address] Test Date: 2024-06-30 Pat Name: Yesica Franco Department: Room: Gender: Female [employer] Mechanic: DEREJE : 1955 Requested By: Order Number: [id number] Reading MD: Jeffery Cruz Measurements Intervals Semmes Rate: 63 P: 38 NE: 158 QRS: 11 QRSD: 88 T: 57 QT: 412 QTc: 421 Interpretive Statements Normal sinus rhythm Electronically Signed On 07-01-2024 18:29:02 PDT by Jeffery Cruz
[2024-06-30] MEDS: ASPIRIN 81 MG CHEW TAB 324 MG PO (08:52)
--- NOTE | 2024-06-30 08:54 | ED_ITS ---
HPI - General Adult General Chief complaint: Hypertension Stated complaint: heart issues,high bp, arm tingling Time Seen by Provider: 06/30/24 08:53 Source: patient Mode of arrival: Ambulatory History of Present Illness HPI narrative: Patient 68-year-old female history of smoking hypertension presenting to day with elevated blood pressure left scapula pain with left arm pain. She reports that she was having knee surgery later this month she has been using crutches for awhile. She has had some left scapular pain off and on since she started using crutches. She is tried heating pad and Tylenol with oxycodone. She has been taking her blood pressure regularly over the last couple of days. Blood pressure is very fluctuant up and down at times. She has had some mild headaches off and on but does not have a headache now. She took 2 her blood pressure pills this morning. She has an appointment with her primary but not till later this month. Left scapular pain isn't necessarily reproducible with movement palpation. Denies any significant shortness of breath. Reports that her mom of [facility] Related Data Previous Rx's Medication Instructions Recorded ondansetron 4 mg disintegrating 4 mg PO BID-TID PRN nausea and 04/19/19 tablet vomiting #7 tabs ondansetron 4 mg disintegrating 4 mg PO Q8H PRN nausea and 02/21/20 tablet vomiting #10 tabs lisinopril 10 mg tablet 10 mg PO DAILY #30 tabs 06/30/24 Allergies Allergy/AdvReac Type Severity Reaction Status Date / Time nitroglycerin AdvReac Intermediate Headache Verified 06/30/24 08:46 Patient History Medical History (Updated 06/30/24 @ 12:25 by Lana Kumar DO) Psoriasis Surgical History Previous back surgery H/O shoulder surgery Social History Smoking Status: Current every day smoker Smoking Status: Current every day smoker alcohol intake frequency: a few times a week Exam Initial Vital Signs Initial Vital Signs: Vital Signs Temperature 97.6 F 06/30/24 08:40 Pulse Rate 63 06/30/24 08:40 Respiratory Rate 24 06/30/24 08:40 Blood Pressure 224/92 H 06/30/24 08:40 Pulse Oximetry 97 06/30/24 08:40 Oxygen Delivery Method Room Air 06/30/24 08:40 GENERAL: Alert well-appearing 68-year-old female HEENT: Head atraumatic,EOMI, pupils reactive, face symmetric, [moist] mucous membranes CARDIOVASCULAR: Regular rate and rhythm without murmurs, rubs or gallops. RESPIRATORY: Breath sounds equal bilaterally, no wheezes rales or rhonchi. ABDOMEN: Soft, nontender. Normoactive bowel sounds all 4 quadrants. No guarding or rebound. BACK: No vertebral tenderness unable to reproduce left scapular pain with palpation EXTREMITIES: Normal range of motion, no clubbing or edema. Neurovascularly intact NEUROLOGICAL: Alert and oriented x4.Normal gait and speech. Cranial nerves II through XII grossly intact. SKIN: Warm, dry, no laceration, no petechiae, no rashes or lesions. Course Orders Ordered: ED Orders 06/30/24 10:45 Trop I [Troponin I] Stat Discontinued Medications Aspirin (Aspirin 81 Mg Chew Tab) 324 mg PO NOW ONE Stop: 06/30/24 08:23 Last Admin: 06/30/24 08:52 Dose: 243 mg Documented By: IGOR Ketorolac Tromethamine (Ketorolac 30 Mg/Ml Vial) 15 mg IV NOW ONE Stop: 06/30/24 10:47 Last Admin: 06/30/24 10:56 Dose: 15 mg Documented By: LUPE Labetalol HCl (Labetalol 20 Mg/4 Ml Syringe) 10 mg IV NOW ONE Stop: 06/30/24 11:06 Last Admin: 06/30/24 11:21 Dose: 10 mg Documented By: ABRAM Oxycodone HCl (Oxycodone Ir 5 Mg Tablet) 5 mg PO NOW ONE Stop: 06/30/24 12:01 Last Admin: 06/30/24 12:04 Dose: 5 mg Documented By: ABRAM Vital Signs Vital signs: Vital Signs - 8 hr 06/30/24 11:00 06/30/24 11:03 06/30/24 11:03 Pulse Rate 62 59 L Respiratory Rate 23 Blood Pressure 215/89 H Pulse Oximetry 98 98 Oxygen Delivery Method 06/30/24 11:20 06/30/24 11:20 06/30/24 11:21 Pulse Rate 62 65 Respiratory Rate Blood Pressure 192/90 H 192/90 H Pulse Oximetry 99 Oxygen Delivery Method 06/30/24 11:30 06/30/24 11:30 06/30/24 11:40 Pulse Rate 65 Respiratory Rate 12 Blood Pressure 187/88 H 185/93 H Pulse Oximetry 97 Oxygen Delivery Method Room Air 06/30/24 11:40 06/30/24 11:50 06/30/24 11:50 Pulse Rate 62 68 Respiratory Rate 14 27 H Blood Pressure 176/77 H Pulse Oximetry 97 92 Oxygen Delivery Method 06/30/24 11:57 06/30/24 12:00 06/30/24 12:00 Pulse Rate 65 64 Respiratory Rate 22 Blood Pressure 176/77 H 198/86 H Pulse Oximetry 97 Oxygen Delivery Method Medical Decision Making Lab Data 06/30/24 08:48 06/30/24 08:48 Labs: Lab Results 06/30/24 06/30/24 Range/Units 08:48 10:45 WBC 7.8 (4.5-11.0) X10^3/uL RBC 4.04 (4.0-5.2) X10^6/uL Hgb 14.0 (12.0-16.0) g/dL Hct 40.5 (36-46) % MCV 100.2 H (80-100) fL MCH 34.7 H (26-34) PG MCHC 34.6 (30-36) % RDW 13.8 (11.6-14.8) % Plt Count 248 (150-400) X10^3/uL Neut % (Auto) 70.0 (50-75) % Lymph % (Auto) 22.4 L (25-40) % [place] % (Auto) 5.1 (3-14) % Eos % (Auto) 1.9 L (2-4) % Baso % (Auto) 0.6 (0-2) % Neut # (Auto) 5500 (3561-8445) /uL Lymph # (Auto) 1800 (0955-9280) /uL [place] # (Auto) 400 (0-900) /uL Eos # (Auto) 200 (0-450) /uL Baso # (Auto) 100 (0-100) /uL PT 10.3 (9.4-12.5) SECONDS INR 0.9 (0.9-1.3) APTT 36 (25.1-36.5) SECONDS Sodium 131 L (137-145) mmol/L Potassium 4.5 (3.4-5.1) mmol/L Chloride 96 L (98-107) mmol/L Carbon Dioxide 28 (22-32) mmol/L BUN 7 (7-17) mg/dL Creatinine 0.68 (0.52-1.04) mg/dL Estimated GFR > 60 (>60) mL/min BUN/Creatinine Ratio 10.3 (6-22) Glucose 113 H (80-110) mg/dL Calcium 9.4 (8.4-10.2) mg/dL Magnesium 1.7 (1.6-2.3) mg/dL Total Bilirubin 0.7 (0.2-1.3) mg/dL AST 31 (14-36) IU/L ALT 19 (<35) IU/L Alkaline Phosphatase 94 (38-126) U/L Total Creatine Kinase 34 (30-135) U/L Troponin I < 0.012 < 0.012 (0.01-0.034) ng/mL NT-Pro-B Natriuret Pep 301 H (<125) pg/mL Total Protein 6.6 (6.3-8.2) g/dL Albumin 4.2 (3.5-5.0) g/dL Globulin 2.4 (1.7-4.1) g/dL Albumin/Globulin Ratio 1.8 (1.0-2.8) Lipase 39 (23-300) U/L Imaging Data Chest x-ray: Radiologist's Impression: PROCEDURE: XR CHEST 1V INDICATIONS: chest pain TECHNIQUE: One view of the chest was acquired. COMPARISON: None. FINDINGS: Surgical changes and devices: None. Lungs and pleura: Lungs are clear. No pleural effusions or pneumothorax. Mediastinum: Mediastinal contours appear normal. Heart size is normal. Bones and chest wall: No suspicious bony lesions. Overlying soft tissues appear unremarkable. IMPRESSION: No acute cardiopulmonary abnormality is seen. Dictated by: Reg Scott M.D. on 06/30/2024 at 9:05 ECG Data Attestation: I personally reviewed and interpreted this ECG as follows: Interpretation: Normal sinus rhythm rate 63 NC interval 150 QRS 88 QTC 421 T-wave inversions in lead [address] changes similar to previous EKGs MDM Narrative Medical decision making narrative: MDM CC: Chest pain elevated blood pressure Complicating co-morbidities: Hypertension smoking Data collected from: Patient Medical records reviewed: Previous walk-in clinic visit 2022 minimal records available Differential considered: Acute coronary syndrome hypertensive emergency aortic dissection Exam documented above, pertinent findings include: 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 Pertinent findings: Independently reviewed EKG as above T-wave inversion noted in lead [address] changes, similar to previous EKGs in 2019 Imaging studies independently reviewed: Chest x-ray no acute cardiopulmonary process CT angio no dissections severe coronary artery calcifications Consultations: 12:10-, hospitalist consulted in regards to chest pain and admission. Reports that patient can have outpatient stress test unable to get 1 here over the weekend. Recommend blood pressure control with adding lisinopril 10 mg. No need to add statin at this time. Would consider aspirin 81 mg daily. Is aware of CT results and blood work. Treatments: Labetalol Toradol, oxycodone Re-evaluations: Patient is standing she can sometimes reproduce her left scapular pain by standing against the wall she sometimes has left-sided chest discomfort but not all the time. Blood pressure is better after labetalol Discussion: Patient is 68-year-old female presenting today with left arm pain left scapular pain sometimes some left sided chest pain. She was a smoker with hypertension. She has been noting quite elevated blood pressures. 2- troponins no changes in her EKGs. She was Toradol and oxycodone labetalol. Labetalol did bring her blood pressure down. Workup is otherwise negative. CT angio did not show any evidence of dissection but does show severe coronary artery disease. She has not actively having chest pain now. Discussion with hospitalist in regards to admission states that not able to get full cardiac evaluation at this time. Does recommend that patient have a stress test prior to her knee operation. Patient agrees to go home and have outpatient follow up. We will start lisinopril and aspirin per hospitalist recommendations Discharge Plan Departure Patient Disposition: Home Clinical Impression: High blood pressure, Atypical chest pain Instructions: DI for High Blood Pressure, DI for Atypical Chest Pain Activity Restrictions/Additional Instructions: *You have been diagnosed with atypical chest pain hypertension *What to do: At this time we are starting you on further blood pressure medication per hospitalist recommendation. It is strongly encouraged that you have outpatient testing done of your heart. You will need a stress test and echocardiogram. Please call your primary care provider today to schedule these tests urgently *Continue to take medications as directed Lisinopril 10 mg once a day Aspirin 81 mg once a day Atenolol take as previously prescribed and directed *Follow up with your primary care provider in 2-3 days or call [phone] Covington today to schedule follow-up for stress test *Return to ER if you should have tongue swelling lip swelling chest pain shortness of breath or any new, worsening or concerning symptoms Prescriptions: New lisinopril 10 mg tablet 10 mg PO DAILY Qty: 30 0RF No Action ondansetron 4 mg tablet,disintegrating 4 mg PO BID-TID PRN (Reason: nausea and vomiting) Qty: 7 0RF ondansetron 4 mg tablet,disintegrating 4 mg PO Q8H PRN (Reason: nausea and vomiting) Qty: 10 0RF Stand Alone Forms: Patient Portal/API/Survey
[2024-06-30 09:04] LABS: INR 0.9 (0.9-1.3); Prothrombin Time 10.3 SECONDS (9.4-12.5)
[2024-06-30 09:06] LABS: PTT Partial Thromboplastin Tim 36 SECONDS (25.1-36.5)
[2024-06-30 09:08] LABS: Alanine Aminotransferase 19 IU/L (<35); Albumin 4.2 g/dL (3.5-5.0); Albumin Globulin Ratio 1.8 (1.0-2.8); Alkaline Phosphatase 94 U/L (38-126); Aspartate Aminotransferase 31 IU/L (14-36); BUN Creatinine Ratio 10.3 (6-22); Bilirubin Total 0.7 mg/dL (0.2-1.3); Blood Urea Nitrogen 7 mg/dL (7-17); Calcium 9.4 mg/dL (8.4-10.2); Carbon Dioxide 28 mmol/L (22-32); Chloride 96 mmol/L (98-107); Creatine Kinase 34 U/L (30-135); Estimated Glomerular Filt Rate > 60 mL/min (>60); Globulin 2.4 g/dL (1.7-4.1); Glucose 113 mg/dL (80-110); HEMOLYSIS < 15 (0-50); Lipase 39 U/L (23-300); Magnesium 1.7 mg/dL (1.6-2.3); Potassium 4.5 mmol/L (3.4-5.1); Sodium 131 mmol/L (137-145); Total Protein 6.6 g/dL (6.3-8.2)
[2024-06-30 09:19] LABS: NT-proBNP (BNP-Adult 18+) 301 pg/mL (<125); Troponin I < 0.012 ng/mL (0.01-0.034)
--- NOTE | 2024-06-30 09:29 | DI.CT.S_ITS ---
PROCEDURE: CT ANGIO CHEST ABDOMEN PELVIS INDICATIONS: hypertension, chest pain, left shoulder pain TECHNIQUE: Precontrast 5 mm thick sections acquired from the lung apices to the iliac crests. After the administration of intravenous contrast, 2.5 mm thick sections again acquired from the lung apices to the iliac crests. Maximum intensity projection (MIP) oblique sagittal and coronal reformats were then acquired. For radiation dose reduction, the following was used: automated exposure control. COMPARISON: None. FINDINGS: Image quality: Diagnostic. AORTA and its attachments: Ascending and descending thoracic aorta and abdominal aorta are of normal caliber without aneurysm or dissection or significant stenosis. Mild aortic plaque from the transverse arch through the distal aorta without stenosis. Classic three-vessel arch anatomy. Great vessel origins are widely patent. SMA, celiac, and VITO are widely patent. Bilateral common iliacs and external iliacs are widely patent. Common femorals are widely patent. CHEST: Lower Neck: No enlarged lymph nodes. Thyroid: No thyroid nodules which require sonographic evaluation. Axillae: No enlarged lymph nodes. Chest Wall: Bilateral mammoplasties. Lungs and Pleura: No pneumothorax or pleural effusions. No consolidation or suspicious nodules. Heart: Heart size is normal. No pericardial effusion. Severe coronary artery calcifications. Thoracic Vessels: Pulmonary arteries demonstrate normal size. Mediastinum and Joy: No enlarged lymph nodes. Esophagus: No wall thickening. No hiatal hernia. ABDOMEN: Liver: No solid mass. Gallbladder: No radiopaque gallstones or wall thickening. Biliary ducts: Question possible distal common duct stone. This is not definite. This is suggested on coronal image 52 of series 9. Mild prominence of the extrahepatic duct. No biliary ductal dilatation involving intrahepatic ducts. Pancreas: Pancreatic duct is mildly dilated. No obstructing mass. Spleen: Size is within normal limits. Adrenal Glands: No adrenal nodules. Kidneys and Ureters: No hydronephrosis. No solid mass. No complex renal cystic lesion which requires follow up. Stomach and Bowel: Normal colonic caliber, without significant wall thickening. Advanced sigmoid diverticulosis without evidence of acute diverticulitis. Peritoneum: No abnormal intraperitoneal fluid. No free air. Ventral Wall: No hernia. Abdominal Nodes: No retroperitoneal or mesenteric adenopathy by size criteria. Vessels: Inferior vena cava is normal in size. PELVIS: Pelvic Organs: Unremarkable. Bladder: Unremarkable. Pelvic Nodes: No enlarged lymph nodes. Miscellaneous: No inguinal hernias are seen. Bones: No aggressive osseous process. Remote posterior decompression in the lower lumbar region and posterior lateral and anterior fusion at L5-S1. IMPRESSION: 1. No aortic dissection or aortic aneurysm. Diffuse aortic plaque. 2. Severe coronary artery calcifications. 3. There is a question of a possible distal common bile duct stone, not definite. There is mild prominence of the extrahepatic duct and mild dilatation of the pancreatic duct. 4. No acute pulmonary process. 5. Advanced sigmoid diverticulosis without evidence of acute diverticulitis. Comment: Recommend MRCP with and without contrast. Dictated by: Reg Scott M.D. on 06/30/2024 at 10:09 Approved by: Reg Scott M.D. on 06/30/2024 at 10:20
[2024-06-30 09:40] LABS: Add Manual Diff / Slide Review NO; Basophils Absolute Auto 100 /uL (0-100); Basophils Percent Auto 0.6 % (0-2); Eosinophils Absolute Auto 200 /uL (0-450); Eosinophils Percent Auto 1.9 % (2-4); Hematocrit 40.5 % (36-46); Lymphocytes Absolute Auto 1800 /uL (1100-4500); Lymphocytes Percent Auto 22.4 % (25-40); Mean Corpuscular HGB Conc 34.6 % (30-36); Mean Corpuscular Hemoglobin 34.7 PG (26-34); Mean Corpuscular Volume 100.2 fL (80-100); Monocytes Absolute Auto 400 /uL (0-900); Monocytes Percent Auto 5.1 % (3-14); Neutrophils Absolute Auto 5500 /uL (1500-7000); Platelet Count 248 X10^3/uL (150-400); Red Blood Cell Count 4.04 X10^6/uL (4.0-5.2); Red Cell Distribution Width 13.8 % (11.6-14.8); White Blood Cell Count 7.8 X10^3/uL (4.5-11.0)
--- NOTE | 2024-06-30 09:42 | PC.NURSE ---
Pt has been hypertensive all week with left shoulder/back pain. Pt feels like her heart is beating out of her chest and feeling anxious.
--- NOTE | 2024-06-30 10:51 | EKG_ITS ---
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
[2024-06-30] MEDS: KETOROLAC 30 MG/ML VIAL 15 MG IV (10:56)
[2024-06-30] MEDS: LABETALOL 20 MG/4 ML SYRINGE 10 MG IV (11:21)
[2024-06-30 11:24] LABS: Troponin I < 0.012 ng/mL (0.01-0.034)
[2024-06-30] MEDS: OXYCODONE IR 5 MG TABLET PO (12:04)
== END 2024-06-30 12:35 | disposition home or self-care (01) ==
PROVIDERS: Emergency Provider Emergency Medicine
DX: I10 Essential (primary) hypertension (principal); R07.89 Other chest pain; M79.602 Pain in left arm; R51.9 Headache, unspecified
CPT/HCPCS: 36415; 71045; 71275; 74174; 80053; 82550; 83690; 83735; 83880; 84484; 85025; 85610; 85730; 93005; 96374; 96375; 99284; J1885; Q9967

== ENCOUNTER → 2024-08-22 15:43 | Outpatient (CLI) | payer MEDICARE, OTHER, SELFPAY ==
--- NOTE | 2024-08-22 15:53 | DI.MRI.S_ITS ---
PROCEDURE: MR KNEE LT WO CON INDICATIONS: OSTEOARTHRITIS TECHNIQUE: Noncontrast sagittal PD fast spin echo and T2 fast spin echo with fat saturation, sagittal 3-D FLASH with fat saturation; coronal T1 spin echo and PD fast spin echo with fat saturation, and axial PD fast spin echo with fat saturation through the knee. COMPARISON: [facility] Outside Film, MR, MR KNEE LEFT WITHOUT CONTRAST, 10/01/2023, 9:03. [facility] Outside Film, CT, CT KNEE LEFT WITHOUT CONTRAST, 10/08/2023, 9:11. [facility] Outside Film, CR, XR KNEE 3 VIEWS LEFT, 11/22/2023, 10:32. FINDINGS: Image quality: Excellent. Menisci: In the medial meniscus, there is a small undersurface tear of the meniscus body and posterior horn junction, extending to the meniscus body (14:19). The lateral meniscus is not visualized, likely secondary to complete maceration. Cruciate ligaments: The anterior and posterior cruciate ligaments appear intact. Medial structures: The medial collateral ligament appears intact. The posterior oblique ligament, semimembranosus tendon insertions, oblique popliteal ligament, and meniscocapsular junction appear intact. Visualized portions of the pes anserinus tendons appear normal. No abnormal bursal fluid. Lateral structures: The lateral collateral ligament, long and short heads of the biceps femoris tendon appear intact. The popliteus tendon appears normal; the popliteofibular ligament appears intact. The posterosuperior and anteroinferior popliteomeniscal fascicles appear intact. The arcuate and fabellofibular ligaments appear intact, on either side of the lateral inferior geniculate artery. Iliotibial band appears normal. Anterior structures: The quadriceps and patellar tendons appear intact. Patella [place]. No femoral trochlear dysplasia or ventral trochlear prominence. Marked Hoffa's fat pad edema. Bones and cartilage: There is moderate sized full-thickness chondral loss in the medial patellar facet, and in the median ridge, with mild subchondral marrow edema. The cartilage of the trochlea is well maintained. In the medial compartment, there is multifocal high-grade chondral thinning in the medial tibial plateau. In the lateral compartment, there is complete chondral denudation in the anterior nonweightbearing portion of the lateral femoral condyle, and of the lateral compartment predominant tricompartmental osteoarthritis tibial plateau. There is impacted fracture of the lateral tibial plateau, with marked articular surface depression, grossly unchanged in appearance in comparison to prior exam. There is marked marrow edema involving the near entirety of the proximal tibial plateau, extending to the proximal tibia metadiaphysis. There is large area of T1 hypointensity within the area of marrow edema, progressed from prior exam, concerning for increased osteonecrosis. Patchy marrow edema of the medial and lateral femoral condyle, new from prior exam, favor reactive/degenerative. Joint space: Large knee effusion. No popliteal cyst. Popliteal vasculature is unremarkable. No intra-articular body. IMPRESSION: 1. Tear of the medial meniscus. Complete maceration of the lateral meniscus. 2. Impacted fracture of the lateral tibial plateau with marked articular surface depression, grossly unchanged. Associated large area of marrow edema in the tibial plateau with progressed T1 hypointensity, concerning for progressed large area of osteonecrosis. 3. Patchy marrow edema in the medial and lateral femoral condyle, new from prior exam, favoring reactive/degenerative. 4. Severe, lateral compartment predominant chondrosis. 5. Large knee effusion. Dictated by: Bethany Huynh M.D. on 08/22/2024 at 17:22 Approved by: Bethany Huynh M.D. on 08/22/2024 at 17:35
== END ==
PROVIDERS: PCP Family Medicine; Referring Provider Psychiatry & Neurology Vascular Neurology; Visit Provider Psychiatry & Neurology Vascular Neurology
DX: S83.242A Other tear of medial meniscus, current injury, left knee, initial encounter (principal); S82.142A Displaced bicondylar fracture of left tibia, initial encounter for closed fracture; M17.32 Unilateral post-traumatic osteoarthritis, left knee; M25.462 Effusion, left knee; M22.42 Chondromalacia patellae, left knee
CPT/HCPCS: 73721

== ENCOUNTER 2024-09-22 09:45 | Emergency (ER) | payer MEDICARE, OTHER, SELFPAY ==
[2024-09-22 09:56] VITALS: BP 117/57; PULSE 79; RESP 16; TEMP 36.9; O2SAT 100; BMI 22.4
--- NOTE | 2024-09-22 10:00 | DI.RAD.S_ITS ---
PROCEDURE: XR TIBIA FIBULA LT 2V INDICATIONS: Pain left distal tib/fib TECHNIQUE: 2 views of the tibia and fibula were acquired. COMPARISON: None. FINDINGS: Bones: There is a very subtle fracture of the tibia inferior to a long stem tibial revision arthroplasty. Fracture extends to the anterior cortical surface of the distal shaft of the tibia. No suspicious bony lesions. Soft tissues: No suspicious soft tissue calcifications or masses. IMPRESSION: Very subtle distal tibial shaft nondisplaced crack fracture. Dictated by: Reg Scott M.D. on 09/22/2024 at 10:36 Approved by: Reg Scott M.D. on 09/22/2024 at 10:37
[2024-09-22 11:31] VITALS: PULSE 68
--- NOTE | 2024-09-22 11:41 | ED_ITS ---
<Statement entered by Fred Kim, DO - 09/22/24 18:54> Dr. Kim cosign statement I was available for consultation during the patient's emergency department visit. This chart is signed by me for administrative purposes only. I do not have direct contact with the patient during this visit. They were seen independently by the APC. HPI - Extremity Injury (Lower) General Chief Complaint: Extremity Injury, Lower Stated Complaint: Left knee pain Time Seen by Provider: 09/22/24 11:11 History of Present Illness HPI Narrative: Ms. Franco is a pleasant 68-year-old female with a past medical history of hypertension, left knee replacement September [address] Marcos PAREKH / YAYO Mckeon who presents to the emergency department for left cesar pain x2 days. She is here with her who contributes to the history as she is currently feeling pretty sleepy from her prescribed hydromorphone. Patient has been doing well postoperatively, walking, however about 2 nights ago when getting up from a chair she hit her anterior left lower cesar she believes on a hard ottoman. She has been having distal left cesar pain since then and difficulty bearing weight/ambulating. She has been using her prescribed hydromorphone as needed for pain. No numbness, tingling, weakness, focal knee or ankle pain. Patient states her left leg swelling and left knee pain have been improving greatly since surgery. Related Data Previous Rx's ?Medication ?Instructions ?Recorded ondansetron 4 mg disintegrating 4 mg PO BID-TID PRN na usea and 04/19/19 tablet vomiting #7 tabs ondansetron 4 mg disintegrating 4 mg PO Q8H PRN nausea and 02/21/20 tablet vomiting #10 tabs lisinopril 10 mg tablet 10 mg PO DAILY #30 tabs 06/17 08/11 Allergies Allergy/AdvReac Type Severity Reaction Status Date / Time nitroglycerin AdvReac Intermediate Headache Verified 09/22/24 09:57 Review of Systems Review of Systems ROS Unobtainable: All systems reviewed & are unremarkable except as noted in HPI and below Patient History Medical History (Updated 09/22/24 @ 14:47 by Billie Thacker PA-C) Psoriasis Surgical History (Updated 09/22/24 @ 14:47 by Billie Thacker PA-C) Previous back surgery H/O shoulder surgery Social History Smoking Status: Current every day smoker Smoking Status: Current every day smoker tobacco type: cigarettes alcohol intake frequency: a few times a week Exam Narrative Exam Narrative: GENERAL: 68 year old patient appears stated age. Well-developed patient, in no acute distress. HEAD: Atraumatic. Normocephalic. EYES: 2mm pupils BL. Extraocular motions intact. No scleral icterus. No injection or drainage. ENT: Nose without bleeding, purulent drainage. Throat without erythema, tonsillar hypertrophy or exudate. Airway patent. NECK: Trachea midline. Cervical ROM intact. CARDIOVASCULAR: Regular rate RESPIRATORY: ?Nonlabored respirations. ?Speaking in clear, full sentences. EXTREMITIES: Left leg edema, anterior left knee surgical incision clean dry intact. Left lower extremity compartments soft. Focal tenderness to palpation of distal anterior tibia with no overlying skin changes, bruising, or wounds. Strong DP pulses palpable. Sensation intact to light touch. Normal range of motion left ankle, limited flexion left knee. NEURO: AOx3. ?Somewhat slowed speech. Answers questions appropriately. SKIN: No rash or erythema of visible areas Initial Vital Signs Initial Vital Signs: Vital Signs Temperature 98.4 F 09/22/24 09:56 Pulse Rate 79 09/22/24 09:56 Respiratory Rate 16 09/22/24 09:56 Blood Pressure 117/57 L 09/22/24 09:56 Pulse Oximetry 100 09/22/24 09:56 Oxygen Delivery Method Room Air 09/22/24 09:56 Course Orders Ordered: ED Orders 09/22/24 10:00 XR tibia fibula LT 2V Stat Discontinued Medications Hydromorphone HCl (Hydromorphone 2 Mg Tablet) 2 mg PO NOW ONE Stop: 09/22/24 15:20 Last Admin: 09/22/24 15:38 Dose: 2 mg Documented By: RB Vital Signs Vital signs: Vital Signs - 8 hr 09/22/24 09:56 09/22/24 11:31 09/22/24 16:07 Temperature 98.4 F 97.8 F Pulse Rate 79 72 Pulse Rate [Left Dorsalis Pedis] 68 Respiratory Rate 16 20 Blood Pressure 117/57 L 119/65 Pulse Oximetry 100 98 Oxygen Delivery Method Room Air Room Air MDM - Extremity Injury (Lower) Medical Records Attestation: I reviewed the patient's medical records. Imaging Data Left Tib/Fib X-Ray: Radiologist's Impression: PROCEDURE: XR TIBIA FIBULA LT 2V INDICATIONS: Pain left distal tib/fib TECHNIQUE: 2 views of the tibia and fibula were acquired. COMPARISON: None. FINDINGS: Bones: There is a very subtle fracture of the tibia inferior to a long stem tibial revision arthroplasty. Fracture extends to the anterior cortical surface of the distal shaft of the tibia. No suspicious bony lesions. Soft tissues: No suspicious soft tissue calcifications or masses. IMPRESSION: Very subtle distal tibial shaft nondisplaced crack fracture. Dictated by: Reg Scott M.D. on 09/22/2024 at 10:36 Approved by: Reg Scott M.D. on 09/22/2024 at 10:37 MDM Narrative Medical decision making narrative: 68-year-old female with a past medical history of hypertension, left knee replacement September [address] Marcos PAREKH / YAYO Mckeon who presents to the emergency department for left cesar pain x2 days. Differential diagnosis includes but is not limited to contusion, tibia fracture, sprain, strain, etc. On exam patient is in no acute distress, nontoxic appearing, she is focal tenderness to palpation of the anterior distal tibia with no overlying skin changes. Leg is neurovascularly intact, prior knee incision is clean dry intact. Tibia fibula x-ray obtained in triage reveals very subtle distal tibial shaft nondisplaced crack fracture. Patient is requesting that I consult with her orthopedic doctor, we will attempt to reach out, she adamantly refuses cast/splint and states that she is claustrophobic and we will cut it off. Attempted to call patient's ortho office, was redirected multiple times, eventually talked with on-call ortho Dr. Ramirez, he is unable to see images and wants me to call back after images were pushed through, however he was scrubbing and surgery will be multiple hours. I did speak with our local ortho Dr. Matos who recommends waiting until I can speak with pt's ortho because of patient's recent surgery at . 2:30pm: Significant delay and patient disposition as I still have not heard back from ortho. Patient is requesting to leave by 3:00 p.m. against medical advice, I discussed with the attending ED physician, we will place patient into a posterior short-leg splint with stirrup and advised nonweightbearing and prompt orthopedic surgery follow up in the setting of her leaving the ED prior to ortho consultation. 3:45pm Bridget from [facility] [place] called me back, still do not have a consulting ortho MD, informed her that patient is actually choosing to leave the ED. Recommended continued ambulation with crutches, continue taking aspirin for DVT prophylaxis, follow up with surgeon REA, she was able to schedule an appointment for Wednesday. I did recommend nonweightbearing until then. Placed into a posterior short-leg splint with stirrup. Patient and her verbali zed understanding that she is leaving against my wishes and we would prefer for her to stay for proper orthopedic consultation, she understands the risks of leaving and is accepting of risks. She is instable condition for discharge home. 4:25pm: [facility] called again, no ortho MD available, informed them patient left, consult canceled. Discharge Plan Departure Patient Disposition: Home Clinical Impression: History of left knee replacement Closed fracture of left distal tibia Qualifiers: Encounter type: initial encounter Fracture morphology: unspecified fracture morphology Qualified Code(s): S82.302A - Unspecified fracture of lower end of left tibia, initial encounter for closed fracture Instructions: DI for Shinbone Fracture Activity Restrictions/Additional Instructions: Dear Ms. Franco, Thank you for coming to the emergency department. Your x-ray today shows that you did fracture the end of your left tibia bone. We were unable to consult with orthopedics about this injury as you did wish to leave prior to them calling back. You have been placed into a splint and I would like you to use crutches and avoid bearing weight on this leg because of the fracture, however it is extremely important to follow up with your surgeon as soon as possible for further management. It is important to still get up and move around to prevent blood clots. Please use RICE therapy for your pain in addition to ibuprofen/acetaminophen. Rest the painful area. Ice the area of pain/swelling for at least 15 minutes, 4x a day. Compress the area of swelling using a brace, wrap, or splint if applied. Elevate the painful or swollen extremity by supporting it above the level of the heart with pillows when sitting or laying. Please follow up with your primary care doctor within the next 2-3 days for ER follow-up. (If you do not have a PCP you can call [phone]. ?to schedule an appointment with an [facility] Primary Care Provider) IF YOU DEVELOP ANY NEW OR WORSENING SYMPTOMS, RETURN TO THE ER! Please read the attached instructions, they highlight more specific treatments and interventions for you at home. Thank you for letting me participate in your care, Billie Thacker PA-C Prescriptions: No Action ondansetron 4 mg tablet,disintegrating 4 mg PO BID-TID PRN (Reason: nausea and vomiting) Qty: 7 0RF ondansetron 4 mg tablet,disintegrating 4 mg PO Q8H PRN (Reason: nausea and vomiting) Qty: 10 0RF lisinopril 10 mg tablet 10 mg PO DAILY Qty: 30 0RF Referrals: Michael Cao MD [Primary Care Provider, Family Practice] Stand Alone Forms: Patient Portal/API
[2024-09-22] MEDS: HYDROMORPHONE 2 MG TABLET PO (15:38)
[2024-09-22 16:07] VITALS: BP 119/65; PULSE 72; RESP 20; TEMP 36.6; O2SAT 98
== END 2024-09-22 16:08 | disposition home or self-care (01) ==
PROVIDERS: Emergency Provider Physician Assistant; PCP Family Medicine
DX: S82.302A Unspecified fracture of lower end of left tibia, initial encounter for closed fracture (principal); W22.8XXA Striking against or struck by other objects, initial encounter; Z96.652 Presence of left artificial knee joint; Z53.29 Procedure and treatment not carried out because of patient's decision for other reasons
CPT/HCPCS: 29515; 73590; 99283